=== PATIENT | male | born 1965 | race Caucasian/White ===

== ENCOUNTER 2019-07-04 11:35 | Emergency (ER) | payer BC, SELFPAY ==
[2019-07-04] VITALS (9 sets, daily range): BP systolic 142–166; BP diastolic 91–108; PULSE 68–88; RESP 10–21; TEMP 37.1; O2SAT 98–100
--- NOTE | ~2019-07-04 | XR_ITS ---
EXAMINATION: XR chest 2V DATE: 07/04/2019 13:03 INDICATION: Shortness of breath. Chest tightness. TECHNIQUE: Frontal and lateral views of the chest were obtained. COMPARISON: None. FINDINGS: The chest demonstrates clear lungs without pneumonia, pleural effusion, or pneumothorax. Th e heart size is normal. IMPRESSION: 1. No acute cardiopulmonary disease. Reviewed, dictated and finalized at location [facility]. [facility]
--- NOTE | 2019-07-04 11:44 | ECG_ITS ---
Measurements Intervals [place] Rate: 77 P: 74 FL: 129 QRS: 47 QRSD: 90 T: 42 QT: 366 QTc: 415 Interpretive Statements SINUS RHYTHM BASELINE WANDER- V4-V6 NORMAL ECG Electronically Signed On 07-04-2019 14:59:26 STRESS TEST TECHNICIAN by Oscar Gonsalez D.O.
--- NOTE | 2019-07-04 12:07 | ED.NEUROSD ---
HPI - Neuro Symptoms/Deficit General Chief Complaint: Neuro Symptoms/Deficit Stated Complaint: Tingling ,Cramping L side of body Time Seen by Provider: 07/04/19 12:04 Source: patient and RN notes reviewed Mode of arrival: ambulatory Limitations: no limitations History of Present Illness HPI Narrative: A 54 y/o male presents to the ED with intermittent tingling/numbness to the lt side of his body for the past couple weeks. He states that he has had this tingling/numbness and lt flank pain for the past couple weeks but that over the past week it has gotten more severe, so he decided to come to the ED. He reports some associated chest heaviness and SOB. He notes that he was recently seen at a and was started on medication for HTN. He denies anything alleviating or aggravating his symptoms. He also denies any weakness, N/V/D, ABD pain, fevers, or chills. Onset (ago): week(s) (a couple) Location: left face, left arm and left leg Quality: numb and tingling Relieving factors: none Exacerbating factors: none Associated symptoms: chest pain (heaviness), shortness of breath and other (lt flank pain) Related Data Allergies Allergy/AdvReac Type Severity Reaction Status Date / Time No Known Allergies Allergy Verified 07/04/19 11:48 Review of Systems Review of Systems: All systems reviewed & are unremarkable except as noted in HPI and below Constitutional: Constitutional: Denies chills and Denies fever(s) Cardiovascular: Cardiovascular: Reports chest pain (heaviness) Respiratory: Respiratory: Reports dyspnea Gastrointestinal: Gastrointestinal: Denies abdominal pain, Denies diarrhea, Denies nausea and Denies vomiting Genitourinary: Genitourinary: Reports flank pain (lt) Neurologic: Reports numbness (intermittent to the lt side of his body), Reports tingling (intermittent to the lt side of his body) and Denies weakness PMFSH Past Medical History Medical History H/O: HTN (hypertension) Surgical History Surgical History No history of previous surgery Social History Social History Smoking status: Current every day smoker Tobacco type: cigarettes Exam Const: General: healthy appearing and no acute distress Nutritional Appearance: well nourished HENMT: Mouth: Yes lip normal and Yes moist mucous membranes Eyes: Conjunctivae: conjunctivae normal Pupils: Equal, round and reactive pupils present Chest: Chest palpation & inspection: abnormal inspection of the chest barrel chest Resp: Effort & Inspection: normal respiratory effort Auscultation: clear to auscultation bilaterally Cardio: Rate: regular rate Rhythm: regular rhythm Heart sounds: no murmurs GI: GI Palp: Yes Soft to palpation and No Tenderness to palpation present (GI) Auscultation: normal bowel sounds Back/Spine/Pelvis: Other: Full ROM. Skin: General skin exam: normal color, dry skin and other (warm) Neuro: General: patient oriented x3 (alert) Cranial nerves: Yes CN's II-XII intact bilaterally Speech: normal speech Motor exam (neuro): 5/5 motor strength present throughout Coordination: [id number] test normal Extrem: General: full ROM Psych: Appearance: grossly normal Affect: Anxious affect present Course Vital Signs Vital signs: Vital Signs Temperature 37.1 C 07/04/19 11:41 Pulse Rate 88 07/04/19 11:41 Respiratory Rate 21 H 07/04/19 11:41 Blood Pressure 158/108 H 07/04/19 11:41 Pulse Oximetry 100 07/04/19 11:41 Temperature 37.1 C 07/04/19 11:41 Pulse Rate 77 07/04/19 14:12 Respiratory Rate 21 H 07/04/19 14:12 Blood Pressure 166/97 H 07/04/19 14:12 Pulse Oximetry 98 07/04/19 14:12 MDM - Neuro Symptoms/Deficit MDM Narrative Medical decision making narrative: He has no objective neurological fingings and I have no suspiscion of stroke. His EKG was normal and troponin w
[2019-07-04] MEDS: SODIUM CHLORIDE 0.9% IV 1,000 ML 999 ML IV CONT (12:35)
[2019-07-04 12:44] LABS: Basophils Absolute Auto 0.1 K/mm3 (0.0-0.1); Basophils Percent Auto 0.8 % (0.2-1.2); Eosinophils Absolute Auto 0.1 K/mm3 (0-0.3); Hematocrit 48.4 % (42.0-52.0); Immature Granulocyte Absolute 0.03 K/mm3 (0.00-0.031); Immature Granulocyte Percent A 0.3 % (0-0.5); Lymphocytes Absolute Auto 2.61 K/mm3 (0.9-3.2); Lymphocytes Percent Auto 24.5 % (18.3-44.2); Mean Corpuscular HGB Conc 33.1 g/dl (32-36); Mean Corpuscular Hemoglobin 30.2 pg (26-34); Mean Corpuscular Volume 91.3 fl (80-100); Mean Platelet Volume 10.4 fl (7.4-10.4); Monocytes Absolute Auto 0.8 K/mm3 (0.1-0.6); Monocytes Percent Auto 7.4 % (2.6-8.5); Platelet Count Result 353 k/mm3 (150-375); Red Cell Distribution Width 13.8 % (11.5-14.5); White Blood Count 10.7 K/mm3 (4.5-10.0)
[2019-07-04] MEDS: IPRATROPIUM BR 0.02% INH SOLN 0.5 MG/2.5 ML VIAL INHALATION (12:46)
[2019-07-04] MEDS: ALBUTEROL SULFATE NEB 2.5 MG/0.5 ML INH 5 MG INHALATION (12:46)
[2019-07-04 12:57] LABS: Alanine Aminotransferase 16 U/L (4-50); Albumin Level 4.8 g/dL (3.5-5.1); Alkaline Phosphatase 102 U/L (38-126); Aspartate Amino Transferase 23 U/L (17-59); Bilirubin,Total 0.4 mg/dL (0.2-1.3); Blood Urea Nitrogen 11 mg/dL (9-20); Calcium 9.5 mg/dL (8.4-10.2); Carbon Dioxide 25 mmol/L (22-30); Chloride 107 mmol/L (98-107); Estimated CRCL calculation 101 ml/min; Estimated Glomerular Filt Rate > 60; Glucose 114 mg/dL (75-110); Potassium 3.7 mmol/L (3.4-5.0); Sodium 143 mmol/L (137-145)
[2019-07-04 14:06] LABS: Troponin I < 0.012 ng/mL (0.000-0.034)
== END 2019-07-04 14:56 | disposition home or self-care (01) ==
PROVIDERS: Emergency Provider Emergency Medicine
DX: R07.89 Other chest pain (principal); R06.00 Dyspnea, unspecified; F17.210 Nicotine dependence, cigarettes, uncomplicated
CPT/HCPCS: 36415; 71046; 80053; 84484; 85025; 93005; 94640; 96360; 99284; J7030